=== PATIENT | male | born 1985 | race Caucasian/White ===

== ENCOUNTER 2016-07-28 15:35 | Emergency (ER) ==
[2016-07-28 15:35] VITALS: BMI 24.3
[2016-07-28 15:39] VITALS: BP 128/77; TEMP 97.8
--- NOTE | 2016-07-28 15:52 | ED.PDOC ---
General ED Provider: Dr. DIYA FERNANDES JR Chief Complaint: Back Pain Stated Complaint: got up to use bathroom at 2 am and lower back popped. has had pain all day lower back raiating to mid back [ End ]0200 97.8 63 18 97% 128/77 8 /10 [facility]IN[facility] SYNDROME Time Seen by Physician: 15:50 Mode of Arrival: Walk-In Information Source: Patient Exam Limitations: No limitations Nursing and Triage Documentation Reviewed and Agree: No Review of Systems - Review Of Systems Constitutional: Reports: No symptoms Eyes: Reports: No symptoms Ears, Nose, Mouth, Throat: Reports: No symptoms Respiratory: Reports: No symptoms Cardiac: Reports: No symptoms GI: Reports: No symptoms : Reports: No symptoms Musculoskeletal: Reports: Back pain Skin: Reports: No symptoms Neurological: Reports: No symptoms, Numbness (LEFT HAND ) Endocrine: Reports: No symptoms Hematologic/Lymphatic: Reports: No symptoms All Other Systems: Other Past Medical History - Past Medical History Previously Healthy: Yes Endocrine: Reports: None Cardiovascular: Reports: None, Other (WPW) Respiratory: Reports: None Hematological: Reports: None Gastrointestinal: Reports: None Genitourinary: Reports: None Neuro/Psych: Reports: None Musculoskeletal: Reports: None Cancer: Reports: None Other Pertinent Past Medical History: WPW - Surgical History General Surgical History: Reports: None - Family History Family History: Reports: None - Social History Smoking Status: Current every day smoker, Light tobacco smoker Hx Substance Use: No Alcohol Screening: Occasionally 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 [employer] Physical Exam - Physical Exam Appearance: Ill-appearing, Thin Pain Distress: Severe Eyes: MASON, EOMI, Conjunctiva clear ENT: Ears normal, Nose normal, Oropharynx normal Neck: Supple Respiratory: Airway patent, Breath sounds clear, Breath sounds equal, Respirations nonlabored Cardiovascular: RRR, Pulses normal, No rub, No murmur GI/: Soft, Nontender, No masses, Bowel sounds normal, No Organomegaly Musculoskeletal: Normal strength, ROM intact, No edema, No calf tenderness ( TENDER AT T9 WITH DIFFUSE SPINAL TENDERNESS ) Skin: Warm, Dry, Normal color Neurological: Sensation intact, Motor intact, Reflexes intact, Cranial nerves intact, Alert, Oriented Psychiatric: Affect appropriate, Mood appropriate Re-Evaluation - Re-Evaluation Time of Re-Evaluation: 17:23 Status: Improved (pain lessened) Critical Care Note - Critical Care Note Total Time (mins): 0 Course - Course Orders, Labs, Meds: Lab Review 07/28/16 16:27 Urine Color Yellow Urine Clarity Clear Urine pH 7.0 Ur Specific [place] 1.010 Urine Protein Negative Urine Glucose (UA) Negative Urine Ketones Negative Urine Blood Negative Urine Nitrite Negative Urine Bilirubin Negative Urine Urobilinogen 0.2 Ur Leukocyte Esterase Negative Orders Category Date Time Status UA [URINALYSIS C & S IF INDICATED] Stat LAB 07/28/16 16:27 Completed Hydrocodone Bit/Acetaminophen [Bynum 7.5-325] MEDS 07/28/16 16:02 Discontinued 1 tab PO ONCE STA CT LUMBAR SPINE W/O CONTRAST Stat RADS 07/28/16 16:[address] THORACIC SPINE W/O CONTRAST Stat RADS 07/28/16 16:46 Completed Medications Discontinued Medications Generic Name Dose Route Start Last Admin Trade Name Freq PRN Reason Stop Dose Admin Acetaminophen/Hydrocodone Bitart 1 tab 07/28/16 16:02 07/28/16 16:25 Bynum 7.5-325 PO 07/28/16 16:03 1 tab ONCE STA Administration Vital Signs: Temp Pulse Resp BP Pulse Ox 07/28/16 15:35 97.8 F 63 18 128/77 97 Departure - Departure Time of Disposition: 17:42 Disposition: HOME SELF-CARE Discharge Problem: Upper back strain Instructions: Thoracic Back Strain (ED), Core Strengthening Exercises (ED) Condition: Fair Pt referred to PMD for follow-up: Yes Additional Instructions: NAPROSYN FOR PAIN FLEXERIL FOR BACK SPASMS NORCO FOR PAIN NOT CONTROLLED BY NAPROSYN RETURN IF FEVER OVER 101.0 IF PAIN NOT CONTROLLED IF ONESIDED WEAKNESS DIFFICULTY WALKING OR PROBLEMS WITH CONTROL OF BOWEL OR BLADDER RECHECK PMD THIS WEEK Prescriptions: Hydrocodone Bit/Acetaminophen [Bynum 5-325] 1 - 2 tab PO Q6HR PRN #12 tablet PRN Reason: pain Naproxen [Naprosyn] 500 mg PO Q12HR PRN #30 tablet PRN Reason: PAIN Cyclobenzaprine HCl [Flexeril] 5 mg PO TID PRN #15 tablet PRN Reason: Spasms Allergies/Adverse Reactions: Allergies bee pollen [Bee Pollen] Adverse Reaction (Verified 07/28/16 15:40) Penicillins Adverse Reaction (Verified 07/28/16 15:40) Home Medications: Ambulatory Orders Cyclobenzaprine HCl [Flexeril] 5 mg PO TID PRN #15 tablet 07/28/16 Hydrocodone Bit/Acetaminophen [Bynum 5-325] 1 - 2 tab PO Q6HR PRN #12 tablet 07/09 Naproxen [Naprosyn] 500 mg PO Q12HR PRN #30 tablet 07/28/16
[2016-07-28] MEDS ORDERED: NORCO 7.5-325 PO STA (16:02)
[2016-07-28 16:34] LABS: BILIRUBIN,URINE Negative (NEGATIVE); KETONES,URINE Negative (NEGATIVE); LEUKOCYTE ESTERASE ,URINE Negative (NEGATIVE); NITRITE,URINE Negative (NEGATIVE); PROTEIN,URINE Negative (NEGATIVE); URINE, BLOOD Negative (NEGATIVE)
[2016-07-28 16:35] LABS: ADD URINE MICROSCOPIC NO
--- NOTE | 2016-07-28 16:57 | CT ---
EXAM: CT lumbar spine without contrast HISTORY: Acute back pain COMPARISON: None TECHNIQUE: CT lumbar spine performed without intravenous contrast. Coronal and sagittal reformatte d images obtained. FINDINGS: Vertebral bodies normal in height. No fracture. No subluxation. For purposes of this ex amination, there will be considered six lumbar vertebral bodies and transitional vertebral anatomy o n the left at L6-S1. Intervertebral spaces maintained. Small multilevel Schmorl's node formation. Mild multilevel marginal osteophyte formation. No paravertebral soft tissue abnormality. Sacroilia c joints intact with mild degenerative change. At L4-L5 and L5-S6 and L6-S1, there are posterior dis c osteophyte complexes causing mild bilateral neural foraminal narrowing. IMPRESSION: 1. Mild chronic discogenic degenerative disease. Please note vertebral body numbering. 2. Transitional vertebral anatomy on the left at L6-S1. 3. No fracture or subluxation.
--- NOTE | 2016-07-28 17:28 | CT ---
EXAM: CT scan thoracic spine HISTORY: Pain COMPARISON: None. FINDINGS: Contiguous axial images obtained through the thoracic spine utilizing 3-mm collimation. Sagittal coronal reconstructions were imaged and reviewed.. The vertebral bodies normal height and alignment. Ventral spondylitic changes are seen within the lower thoracic spine. The mild degenerati ve disc disease is noted at T7-T8 through T9-T10. Schmorl's nodes are noted at multiple levels in t he mid and lower thoracic spine.. At T10-T11 there is mild left neural foraminal narrowing secondar y to facet arthropathy. The T11-T12 there is mild concentric disc bulge with mild bilateral neural foraminal narrowing. IMPRESSION: Multilevel degenerative disc disease with ventral spondylitic changes and Schmorl's nodes as describ ed. Mild left neural foraminal narrowing T10-T11. Concentric disc bulge with bilateral neural foraminal narrowing T11-T12
== END 2016-07-28 17:57 | disposition home or self-care (01) ==
LOC: ED 15:35
DX: S29.012A Strain of muscle and tendon of back wall of thorax, initial encounter (principal); X50.1XXA Overexertion from prolonged static or awkward postures, initial encounter; F17.210 Nicotine dependence, cigarettes, uncomplicated
CPT/HCPCS: 81001; 99283

== ENCOUNTER 2017-09-09 18:52 | Emergency (ER) ==
[2017-09-09 18:55] VITALS: BP 138/87; TEMP 98; BMI 21.4
[2017-09-09] MEDS ORDERED: DECADRON 4 MG/ML SDV IM STA (19:00)
[2017-09-09] MEDS ORDERED: NORFLEX IM STA (19:00)
[2017-09-09] MEDS ORDERED: TORADOL IM STA (19:00)
--- NOTE | 2017-09-09 19:12 | ED.PDOC ---
General ED Provider: Dr. CRISTINO FLOREZ-ER Chief Complaint: Back Pain Stated Complaint: i bent over and something popped in my back Time Seen by Physician: 18:55 Mode of Arrival: Walk-In Information Source: Patient Exam Limitations: No limitations Primary Care Provider: YAR[facility] Nursing and Triage Documentation Reviewed and Agree: Yes Does patient meet sepsis criteria?: No System Inflammatory Response Syndrome: Not Applicable Sepsis Protocol: For patient's 13 years and over: Temp is 96.8 and below OR 101 and greater Pulse >90 BPM Resp >20/minute Acutely Altered Mental Status Are patient's symptoms suggestive of a new infection, such as: -Pneumonia -Skin, Soft Tissue -Endocarditis -UTI -Bone, Joint Infection -Implantable Device -Acute Abdominal Infection -Wound Infection -Meningitis -Blood Stream Catheter Infection -Unknown Musculoskeletal Complaint Exam - Back Pain Complaint/Exam Mechanism of Injury: Reports: No known trauma Onset/Duration: several hours Symptoms Are: Still present Timing: Constant Initial Severity: Mild Current Severity: Moderate Location: Reports: Discrete (lumbar spine) Character: Reports: Dull, Spasmodic Aggravating: Reports: Movements, Lifting, Bending, Walking Alleviating: Reports: None Associated Signs and Symptoms: Denies: Swelling, Redness, Bruising, Fever, Weakness, Numbness, Tingling, Abdominal pain, Flank pain, Bladder incontinence, Bowel incontinence, Weight loss, Pain with weight bearing AAA Risk Factors: Reports: None Cauda Equina Risk Factors: Reports: None Epidural Abcess Risk Factors: Reports: None Related Surgical History: Reports: None Focal Tenderness: Yes Paraspinal Muscle Tenderness: Yes Paraspinal Muscle Spasm: No Scoliosis: No Lordosis: No Kyphosis: No SLR Test: Right Negative, Left Negative Hip Motion Testing Pain: Right Negative, Left Negative Focal Weakness: Present: None Focal Sensory Loss: Present: None Gait: Present: Abnormal Differential Diagnoses: Herniated Disk, Strain, Sprain Review of Systems - Review Of Systems Constitutional: Reports: No symptoms Eyes: Reports: No symptoms Ears, Nose, Mouth, Throat: Reports: No symptoms Respiratory: Reports: No symptoms Cardiac: Reports: No symptoms GI: Reports: No symptoms : Reports: No symptoms, Incontinence Musculoskeletal: Reports: Muscle pain Skin: Reports: No symptoms Neurological: Reports: No symptoms Endocrine: Reports: No symptoms Hematologic/Lymphatic: Reports: No symptoms All Other Systems: Reviewed and Negative Past Medical History - Past Medical History Previously Healthy: Yes Endocrine: Reports: None Cardiovascular: Reports: None, Other (WPW) Respiratory: Reports: None Hematological: Reports: None Gastrointestinal: Reports: None Genitourinary: Reports: None Neuro/Psych: Reports: None Musculoskeletal: Reports: None Cancer: Reports: None Other Pertinent Past Medical History: WPW - Surgical History General Surgical History: Reports: None - Family History Family History: Reports: None - Social History Smoking Status: Current every day smoker, Heavy tobacco smoker Hx Substance Use: No Alcohol Screening: Occasionally - Immunizations Tetanus Shot up to Date: Yes Physical Exam - Physical Exam Appearance: Well-appearing, No pain distress, Well-nourished Pain Distress: Moderate Eyes: MASON, EOMI, Conjunctiva clear ENT: Ears normal, Nose normal, Oropharynx normal Neck: Supple Respiratory: Airway patent, Breath sounds clear, Breath sounds equal, Respirations nonlabored Cardiovascular: RRR, Pulses normal, No rub, No murmur GI/: Soft, Nontender, No masses, Bowel sounds normal, No Organomegaly Musculoskeletal: Normal strength, ROM intact, No edema, No calf tenderness Skin: Warm, Dry, Normal color Neurological: Sensation intact, Motor intact, Reflexes intact, Cranial nerves intact, Alert, Oriented Psychiatric: Affect appropriate, Mood appropriate Interpretation - Radiology Interpretation Radiology Interpretation By: Radiologist Radiology Results: Positive Exam Interpreted: CT Scan Re-Evaluation - Re-Evaluation Time of Re-Evaluation: 19:56 Status: Improved Vital Signs Stable: Yes Pain Level: 2 Appearance: NAD Lungs: Clear Skin: Warm and Dry Neuro: Alert and Oriented X3 CV: RRR Critical Care Note - Critical Care Note Total Time (mins): 0 Course - Course Orders, Labs, Meds: Orders Category Date Time Status Dexamethasone 4 mg/ml Inj [Decadron 4 mg/ml Sdv] MEDS 09/09/17 19:00 Discontinued 4 mg IM ONCE STA Ketorolac Tromethamine [Toradol] MEDS 09/09/17 19:00 Discontinued 60 mg IM ONCE STA Orphenadrine Citrate [Norflex] MEDS 09/09/17 19:00 Discontinued 60 mg IM ONCE STA CT LUMBAR SPINE W/O CONTRAST Stat RADS 09/09/17 19:00 Completed Medications Discontinued Medications Generic Name Dose Route Start Last Admin Trade Name Freq PRN Reason Stop Dose Admin Dexamethasone Sodium Phosphate 4 mg 09/09/17 19:00 09/09/17 19:05 Decadron 4 Mg/Ml Sdv IM 09/09/17 19:01 4 mg ONCE STA Administration Ketorolac Tromethamine 60 mg 09/09/17 19:00 09/09/17 19:05 Toradol IM 09/09/17 19:01 60 mg ONCE STA Administration Orphenadrine Citrate 60 mg 09/09/17 19:00 09/09/17 19:04 Norflex IM 09/09/17 19:01 60 mg ONCE STA Administration Vital Signs: Temp Pulse Resp BP Pulse Ox 09/09/17 18:52 98 F 62 14 138/87 98 Departure - Departure Time of Disposition: 19:57 Disposition: HOME SELF-CARE Discharge Problem: Lumbar strain Qualifiers: Encounter type: initial encounter Qualified Code(s): S39.012A - Strain of muscle, fascia and tendon of lower back, initial encounter Instructions: Low Back Strain (ED), Lower Back Exercises (ED) Condition: Good Pt referred to PMD for follow-up: Yes IPMP verified?: No Additional Instructions: medrol dose pack=--flexeril 5mg tid prn spasm #21--norco 7.5mg q 4hrs prn pain # 12--f/u wtih pcsp Allergies/Adverse Reactions: Allergies bee pollen [Bee Pollen] Adverse Reaction (Verified 09/09/17 18:55) Penicillins Adverse Reaction (Verified 09/09/17 18:55) Home Medications: Ambulatory Orders 1 [No Reported Medications] 09/09/17 Disposition Discussed With: Patient
--- NOTE | 2017-09-09 19:54 | CT ---
Exam: CT of the lumbar spine without intravenous contrast with 3-D MIP reformatted reconstructions. Reason for exam: Low back pain. Comparison: 07/28/2016 FINDINGS: No acute fracture or listhesis. The vertebral body and intervertebral body disc space heig hts are well maintained. There is a normal appearing lumbar lordotic curve. T12-L1: No significant central canal or foraminal narrowing. L1-L2: No significant central canal or foraminal narrowing. L2-L3: Small broad-based disc bulge with impression on the thecal sac resulting in mild central linda l and foraminal narrowing. L3-L4: Broad-based disc bulge with impression on the thecal sac resulting in mild to moderate centra l canal and foraminal narrowing. L4-L5: Broad-based disc bulge with impression on the thecal sac and facet hypertrophy resulting in m oderate central canal and foraminal narrowing. L5-S1: Broad-based disc bulge with impression on the thecal sac and facet hypertrophy resulting in m oderate central canal and foraminal narrowing. Impression: 1. No acute fracture or listhesis in the lumbar spine. 2. Mild multilevel discogenic disease not significantly changed from previous exam. If clinical con cern exists for radiculopathy or myelopathy, MRI may be performed for further characterization.
== END 2017-09-09 19:59 | disposition home or self-care (01) ==
LOC: ED 18:52
DX: S39.012A Strain of muscle, fascia and tendon of lower back, initial encounter (principal); X50.1XXA Overexertion from prolonged static or awkward postures, initial encounter; F17.210 Nicotine dependence, cigarettes, uncomplicated
CPT/HCPCS: 96372; 99282

== ENCOUNTER 2018-04-29 19:18 | Emergency (ER) | payer MEDICAID, OTHER ==
[2018-04-29 19:21] VITALS: BP 138/82; TEMP 97.8; BMI 28.8
[2018-04-29] MEDS ORDERED: XOPENEX 1.25 MG NEB STA (19:26)
[2018-04-29] MEDS ORDERED: TORADOL IVP STA (19:47)
--- NOTE | 2018-04-29 21:10 | CT ---
Exam: CTA chest. Date: 04/29/2018. HISTORY: Chest pain. TECHNIQUE: Helical scan of the thorax was performed following intravenous contrast. MIP and 3-D rec onstruction was performed. FINDINGS: The thoracic inlet and axillary regions are normal. No suspicious mediastinal adenopathy is observed. The caliber of the thoracic aorta and cardiac chambers are normal. The spleen and uppe r liver have a uniform enhancement. The gallbladder, stomach, pancreas and adrenal glands are normal . No acute osseous abnormalities are observed. Evaluation at lung window settings does not demonstrate any suspicious pulmonary nodules, pleural flu id or consolidation. Tracheobronchial tree is patent. There is good enhancement of the pulmonary arteries. No intraluminal filling defects are seen out to the segmental pulmonary arterial divisions. Impression: No acute intrathoracic findings; no evidence of emboli out to the segmental pulmonary ar terial divisions.
--- NOTE | 2018-04-29 21:26 | ED.PDOC ---
General ED Provider: Dr. CRISTINO FLOREZ-ER Chief Complaint: Chest Pain Stated Complaint: my chest hurts when i breathe in Time Seen by Physician: 19:20 Mode of Arrival: Walk-In Information Source: Patient Exam Limitations: No limitations Nursing and Triage Documentation Reviewed and Agree: Yes Does patient meet sepsis criteria?: No System Inflammatory Response Syndrome: Not Applicable Sepsis Protocol: For patient's 13 years and over: Temp is 96.8 and below OR 101 and greater Pulse >90 BPM Resp >20/minute Acutely Altered Mental Status Are patient's symptoms suggestive of a new infection, such as: -Pneumonia -Skin, Soft Tissue -Endocarditis -UTI -Bone, Joint Infection -Implantable Device -Acute Abdominal Infection -Wound Infection -Meningitis -Blood Stream Catheter Infection -Unknown Cardiovascular Complaint Exam - Chest Pain Complaint/Exam Onset: Gradual Duration: 4 hrs Symptoms Are: Still present Initial Severity: Mild Current Severity: Moderate Location: Reports: Diffuse Character: Reports: Dull, Aching, Tightness Aggravating: Reports: Movement, Deep breaths Associated Signs and Symptoms: Denies: Diaphoresis, Nausea, Vomiting, Fever, Palpitations, Cough, Hemoptysis, Back pain, Abdominal pain, Dizziness, Short of air, Calf pain, Calf swelling Prior Care for this Complaint: No Recent Stress Test: No Recent Echo/LV Function: No JVD Present: No Subcutaneous Emphysema Present: No Diminshed Breath Sounds: No Reproducible Chest Wall Pain: No Bilateral Pulses Present: Yes Unequal Pulses Noted: No Review of Systems - Review Of Systems Constitutional: Reports: No symptoms Eyes: Reports: No symptoms Ears, Nose, Mouth, Throat: Reports: No symptoms Respiratory: Reports: Short of air Cardiac: Reports: Chest pain GI: Reports: No symptoms : Reports: No symptoms Musculoskeletal: Reports: No symptoms Skin: Reports: No symptoms Neurological: Reports: No symptoms Endocrine: Reports: No symptoms Hematologic/Lymphatic: Reports: No symptoms All Other Systems: Reviewed and Negative Past Medical History - Past Medical History Previously Healthy: Yes Endocrine: Reports: None Cardiovascular: Reports: None, Other (WPW) Respiratory: Reports: None Hematological: Reports: None Gastrointestinal: Reports: None Genitourinary: Reports: None Neuro/Psych: Reports: None Musculoskeletal: Reports: None Cancer: Reports: None Other Pertinent Past Medical History: WPW - Surgical History General Surgical History: Reports: None - Family History Family History: Reports: None - Social History Smoking Status: Current every day smoker, Heavy tobacco smoker Hx Substance Use: No Alcohol Screening: None - Immunizations Tetanus Shot up to Date: Yes Physical Exam - Physical Exam Appearance: Well-appearing, No pain distress, Well-nourished Eyes: MASON, EOMI, Conjunctiva clear ENT: Ears normal, Nose normal, Oropharynx normal Neck: Supple Respiratory: Airway patent, Breath sounds clear, Breath sounds equal, Respirations nonlabored Cardiovascular: RRR, Pulses normal, No rub, No murmur GI/: Soft, Nontender, No masses, Bowel sounds normal, No Organomegaly Musculoskeletal: Normal strength, ROM intact, No edema, No calf tenderness Skin: Warm, Dry, Normal color Neurological: Sensation intact, Motor intact, Reflexes intact, Cranial nerves intact, Alert, Oriented Psychiatric: Affect appropriate, Mood appropriate Interpretation - Radiology Interpretation Radiology Interpretation By: Radiologist Radiology Results: Negative Exam Interpreted: CT Scan - EKG Interpretation Time of EKG #1: 21:26 Rate: Normal Rhythm: Sinus Ectopy: None [place]: NL ST Segment: Normal Interpretation: wPW Critical Care Note - Critical Care Note Total Time (mins): 30 Course - Course Hematology/Chemistry: 04/29/18 19:36 04/29/18 19:36 Orders, Labs, Meds: Lab Review 04/29/18 04/29/18 04/29/18 19:23 19:36 19:36 WBC 10.23 H RBC 4.72 Hgb 14.3 Hct 42.8 MCV 90.7 MCH 30.3 MCHC 33.4 RDW Coeff of Nani 13.2 Plt Count 316 Immature Gran % (Auto) 0.3 Neut % (Auto) 57.5 Lymph % (Auto) 30.2 [place] % (Auto) 6.9 Eos % (Auto) 4.6 Baso % (Auto) 0.5 Immature Gran # (Auto) 0.0 Neut # (Auto) 5.9 Lymph # (Auto) 3.1 [place] # (Auto) 0.7 Eos # (Auto) 0.5 Baso # (Auto) 0.1 Puncture Site Rb O2 Saturation 97.0 ABG pH 7.384 ABG pCO2 40.8 ABG pO2 92.0 ABG HCO3 24.3 ABG Total CO2 26 ABG Base Excess -1 Harjinder Test + FiO2 % 21.0 Sodium 140.9 Potassium 4.46 Chloride 108.7 H Carbon Dioxide 24.4 Anion Gap 12.26 BUN 17.1 Creatinine 1.01 Estimated GFR (MDRD) 85.00 BUN/Creatinine Ratio 16.93 Glucose 81.6 Calcium 9.32 Total Bilirubin 0.30 AST 27.1 ALT 29.4 Alkaline Phosphatase 65.5 Total Creatine Kinase 80.8 Troponin I < 0.012 Total Protein 7.64 Albumin 4.50 Globulin 3.14 Albumin/Globulin Ratio 1.43 Amylase 90.9 Lipase 79.5 Orders Category Date Time Status ABG DRAW REQUEST Stat CARDIO 04/29/18 19:23 Completed EKG-(ED ONLY) Stat CARDIO 04/29/18 19:23 Completed NEBULIZER TREATMENT Stat CARDIO 04/29/18 19:26 Completed NPO REMINDER: IMAGING ONCE CARE 04/29/18 19:26 Completed ED IV/MEDIPORT/POWERPORT .ONCE EMERGENCY 04/29/18 19:23 Active ABG Stat LAB 04/29/18 19:23 Completed AMYLASE Stat LAB 04/29/18 19:36 Completed CBC W/ AUTO DIFF Stat LAB 04/29/18 19:36 Completed COMPREHENSIVE METABOLIC PANEL Stat LAB 04/29/18 19:36 Completed CREATINE KINASE Stat LAB 04/29/18 19:36 Completed LIPASE Stat LAB 04/29/18 19:36 Completed TROPONIN I Stat LAB 04/29/18 19:36 Completed 0.9 % Sodium Chloride [Saline Flush] MEDS 04/29/18 19:23 Discontinued 1 syr IVF PRN PRN Ketorolac Tromethamine [Toradol] MEDS 04/29/18 19:47 Discontinued 30 mg IVP ONCE STA Levalbuterol HCl [Xopenex 1.25 mg] MEDS 04/29/18 19:26 Discontinued 1 vial NEB ONCE STA CT CHEST PE PROTOCOL Stat RADS 04/29/18 19:26 Completed Medications Discontinued Medications Generic Name Dose Route Start Last Admin Trade Name Freq PRN Reason Stop Dose Admin Ketorolac Tromethamine 30 mg 04/29/18 19:47 04/29/18 19:58 Toradol IVP 04/29/18 19:48 30 mg ONCE STA Administration Levalbuterol HCl 1 vial 04/29/18 19:26 04/29/18 19:39 Xopenex 1.25 Mg NEB 04/29/18 19:27 1 vial ONCE STA Administration Sodium Chloride 1 syr 04/29/18 19:23 04/29/18 19:58 Saline Flush IVF 1 syr PRN PRN Administration To flush IV we wanted to admit or transfer for further evaluation but the patient declines-- -i informed him and his that undiagnosed chest pain could result in injury or but he still refuses both and wishes to leave AMA Vital Signs: Temp Pulse Resp BP Pulse Ox 04/29/18 19:18 97.8 F 66 22 138/82 98 AYAD Risk Score AYAD Risk Score: Risk Score Odds of by 30D 0 0.1 (0.1-0.2) 1 0.3 (0.2-0.3) 2 0.4 (0.3-0.5) 3 0.7 (0.6-0.9) 4 1.2 (1.0-1.5) 5 2.2 (1.9-2.6) 6 3.0 (2.5-3.6) 7 4.8 (3.8-6.1) Departure - Departure Time of Disposition: 21:28 Disposition: AMA Discharge Problem: Chest pain Instructions: Chest Pain (ED) Condition: Stable Pt referred to PMD for follow-up: Yes IPMP verified?: No Additional Instructions: return prn Allergies/Adverse Reactions: Allergies bee pollen [Bee Pollen] Adverse Reaction (Verified 04/29/18 19:21) Penicillins Adverse Reaction (Verified 04/29/18 19:21) Home Medications: Ambulatory Orders 1 [No Reported Medications] 09/09/17 Disposition Discussed With: Patient, Family
== END 2018-04-29 21:25 | disposition left against medical advice (07) ==
LOC: ED 19:18
DX: R07.9 Chest pain, unspecified (principal); R06.02 Shortness of breath; F17.210 Nicotine dependence, cigarettes, uncomplicated
CPT/HCPCS: 36415; 80053; 82150; 82550; 82803; 83690; 84484; 85025; 93005; 93010; 94640; 96374; 96375; 99283

== ENCOUNTER 2018-08-23 13:44 | Emergency (ER) ==
[2018-08-23 13:48] VITALS: BP 141/83; TEMP 98.2; BMI 25.6
--- NOTE | 2018-08-23 14:20 | ED.PDOC ---
General ED Provider: Dr. KING TYLER Chief Complaint: Ankle Pain/Injury Stated Complaint: Right ankle rash Time Seen by Physician: 14:10 Mode of Arrival: Walk-In Information Source: Patient Nursing and Triage Documentation Reviewed and Agree: Yes Does patient meet sepsis criteria?: No System Inflammatory Response Syndrome: Not Applicable Sepsis Protocol: For patient's 13 years and over: Temp is 96.8 and below OR 101 and greater Pulse >90 BPM Resp >20/minute Acutely Altered Mental Status Are patient's symptoms suggestive of a new infection, such as: -Pneumonia -Skin, Soft Tissue -Endocarditis -UTI -Bone, Joint Infection -Implantable Device -Acute Abdominal Infection -Wound Infection -Meningitis -Blood Stream Catheter Infection -Unknown Skin Complaint Exam - Skin Rash/Itching Complaint/Exam Onset/Duration: Today Symptoms Are: Still present Initial Severity: Mild Current Severity: Mild Location: See photos Potential Exposures: Reports: Unknown Aggravating: Reports: Heat Alleviating: Reports: None Associated Signs and Symptoms: Denies: Difficulty breathing, Fever, Chills Differential Diagnoses: Other (Friction rub - see photos ) Review of Systems - Review Of Systems Constitutional: Reports: No symptoms (see photos ) Eyes: Reports: No symptoms Ears, Nose, Mouth, Throat: Reports: No symptoms Respiratory: Reports: No symptoms Cardiac: Reports: No symptoms GI: Reports: No symptoms : Reports: No symptoms Musculoskeletal: Reports: No symptoms Skin: Reports: Rash (see photos ) Neurological: Reports: No symptoms Endocrine: Reports: No symptoms Hematologic/Lymphatic: Reports: No symptoms All Other Systems: Reviewed and Negative Past Medical History - Past Medical History Previously Healthy: Yes Endocrine: Reports: None Cardiovascular: Reports: None, Other (WPW) Respiratory: Reports: None Hematological: Reports: None Gastrointestinal: Reports: None Genitourinary: Reports: None Neuro/Psych: Reports: None Musculoskeletal: Reports: None Cancer: Reports: None Other Pertinent Past Medical History: WPW - Surgical History General Surgical History: Reports: None - Family History Family History: Reports: None - Social History Smoking Status: Current every day smoker, Heavy tobacco smoker Hx Substance Use: No Alcohol Screening: None - Immunizations Tetanus Shot up to Date: No Physical Exam - Physical Exam Appearance: Well-appearing Ill-appearing: None Pain Distress: None Eyes: MASON, EOMI, Conjunctiva clear ENT: Ears normal, Nose normal, Oropharynx normal Respiratory: Airway patent, Breath sounds clear, Breath sounds equal, Respirations nonlabored Cardiovascular: RRR, Pulses normal, No rub, No murmur GI/: Soft, Nontender, No masses, Bowel sounds normal, No Organomegaly Musculoskeletal: Normal strength, ROM intact, No edema, No calf tenderness Skin: Warm, Dry, Normal color Neurological: Sensation intact, Motor intact, Reflexes intact, Cranial nerves intact, Alert, Oriented Psychiatric: Affect appropriate, Mood appropriate Critical Care Note - Critical Care Note Total Time (mins): 0 Course - Course Vital Signs: Temp Pulse Resp BP Pulse Ox 08/23/18 13:45 98.2 F 95 H 18 141/83 H 97 Departure - Departure Time of Disposition: 14:21 Disposition: HOME SELF-CARE Discharge Problem: Rash Instructions: Acute Rash (ED) Condition: Good Pt referred to PMD for follow-up: Yes IPMP verified?: No Additional Instructions: Please call your Family Physician as soon as possible to schedule a follow-up appointment. Refrain from wearing boots over the next few days in order to allow proper healing of the affected area. It is important to keep the affected area clean and dry. Allergies/Adverse Reactions: Allergies bee pollen [Bee Pollen] Adverse Reaction (Verified 08/23/18 13:51) Penicillins Adverse Reaction (Verified 08/23/18 13:51) Home Medications: Ambulatory Orders 1 [No Reported Medications] 09/09/17
== END 2018-08-23 14:40 | disposition home or self-care (01) ==
LOC: ED 13:44
DX: R21 Rash and other nonspecific skin eruption (principal); F17.210 Nicotine dependence, cigarettes, uncomplicated
CPT/HCPCS: 99282